=== PATIENT | male | born 1955 | race Caucasian/White ===

== ENCOUNTER → 2016-07-27 | Outpatient (CLI) | payer OTHER ==
[2016-07-27 07:45] LABS: CH 30.4; CHCM 33.9; HCT 44.2 % (39.0-53.0); HDW 2.68; HGB 15.1 gm/dL (13.0-17.5); MCH 30.8 pg (25.0-35.0); MCHC 34.2 g/dL (31.0-37.0); MCV 90.1 fL (80.0-100.0); Mean Platelet Volume 6.1; RBC 4.91 m/uL (4.30-5.90); RDW 12.6 % (11.5-15.5); WBC 5.7 k/uL (3.8-10.6)
[2016-07-27 15:53] LABS: Treponemal Ab Non-Reactive (Non-Reactive)
[2016-07-27 17:15] LABS: ANA w/Reflex to Titer NEGATIVE (NEGATIVE)
[2016-08-01 09:29] LABS: Mis test requested (Blood) Anti GM1
[2016-08-01 20:03] LABS: Mercury Whole Blood < 2 mcg/L (< 11)
[2016-08-08 16:22] LABS: Mis test requested (Blood) Anti - MAG Ab
[2016-08-08 17:03] LABS: Mis test requested (Blood) Anti - Hu
== END | disposition home or self-care (01) ==
LOC: LABWHC1 07:20
PROVIDERS: ATTEND Psychiatry & Neurology Sleep Medicine
DX: G45.9 Transient cerebral ischemic attack, unspecified (principal)
CPT/HCPCS: 36415; 82175; 82570; 82607; 82947; 83090; 83516; 83655; 83825; 84165; 84181; 84439; 84443; 85027; 86038; 86225; 86235; 86780

== ENCOUNTER 2017-10-11 09:02 | Emergency (ER) | payer OTHER ==
[2017-10-11 09:09] VITALS: RESP 20; TEMP 98.1
[2017-10-11] MEDS ORDERED: SODIUM CHLORIDE 0.9% 1,000 ML IV STA (09:40)
[2017-10-11] MEDS ORDERED: ACETAMINOPHEN TAB 500 MG TAB PO STA (09:40)
[2017-10-11 10:17] LABS: ALT 52 U/L (21-72); AST 38 U/L (17-59); Albumin 4.5 g/dL (3.5-5.0); Alkaline Phosphatase 71 U/L (38-126); Anion Gap 11 mmol/L; Blood Urea Nitrogen 12 mg/dL (9-20); Calcium 9.6 mg/dL (8.4-10.2); Carbon Dioxide 24 mmol/L (22-30); Chloride 105 mmol/L (98-107); Glucose 113 mg/dL (74-99); Potassium 4.4 mmol/L (3.5-5.1); Sodium 140 mmol/L (137-145); Total Bilirubin 0.9 mg/dL (0.2-1.3); Total Protein 7.6 g/dL (6.3-8.2)
[2017-10-11 10:29] LABS: Basophils % (A) 0 %; Eosinophils % (A) 1 %; HCT 44.7 % (39.0-53.0); HGB 15.6 gm/dL (13.0-17.5); Lymphocytes # (A) 0.9 k/uL (1.0-4.8); Lymphocytes % (A) 11 %; MCH 30.4 pg (25.0-35.0); MCHC 34.8 g/dL (31.0-37.0); MCV 87.2 fL (80.0-100.0); Mean Platelet Volume 6.6; Monocytes # (A) 0.3 k/uL (0-1.0); Monocytes % (A) 4 %; Neutrophils # (A) 6.6 k/uL (1.3-7.7); Neutrophils % (A) 83 %; Platelet Count 227 k/uL (150-450); RBC 5.13 m/uL (4.30-5.90); RDW 12.4 % (11.5-15.5)
--- NOTE | 2017-10-11 10:31 | ED ---
Headache HPI - General Chief Complaint: Headache Stated Complaint: HEAD INJURY Time Seen by Provider: 10/11/17 09:20 Mode of arrival: wheelchair Limitations: no limitations - History of Present Illness Initial Comments: 62 years old gentleman had a headache and not being able to see well since noon yesterday, he has a history of firm brain bleed in the past when she had a headache he took some aspirin for the headache denies any blood thinners except and the aspirin he denies any trauma no fall. He stated his vision is not very well but since yesterday he was not able to read well. His vision has improved now but not 100%. He is very active he runs about 2 miles every day, he has headache and poor vision no neck stiffness no chest pain or shortness of breath no abdominal pain no frequency urgency dysuria no symptoms of TIA or CVA though he has a history of CVA TIAs and has seen neurologist pretty religiously - Related Data Home Medications Medication Instructions Recorded Confirmed Aspirin 81 mg PO DAILY 10/11/17 10/11/17 Multivitamins, Thera [Multivitamin 1 tab PO DAILY 10/11/17 10/11/17 (formulary)] [place]-3 Fatty Acids/Fish Oil [Fish 1 cap PO DAILY 10/11/17 10/11/17 Oil 1,000 mg Softgel] Pravastatin Sodium [Pravachol] 10 mg PO HS 10/11/17 10/11/17 Allergies Allergy/AdvReac Type Severity Reaction Status Date / Time No Known Allergies Allergy Verified 10/11/17 09:26 Review of Systems ROS Statement: Those systems with pertinent positive or pertinent negative responses have been documented in the HPI. ROS Other: All systems not noted in ROS Statement are negative. Past Medical History Additional Past Medical History / Comment(s): brain bleed History of Any Multi-Drug Resistant Organisms: None Reported Past Psychological History: No Psychological Hx Reported Smoking Status: Never smoker Past Alcohol Use History: Occasional Past Drug Use History: None Reported General Exam - General Exam Comments Initial Comments: General: The patient is awake and alert, in no distress, and does not appear acutely ill. GCS is 15 Skin: Skin is warm and dry and no rashes or lesions are noted. Eye: Pupils are equal, round and reactive to light, extra-ocular movements are intact; there is normal conjunctiva bilaterally. Ears, nose, mouth and throat: There are moist mucous membranes and no oral lesions. Neck: The neck is supple, there is no tenderness Cardiovascular: There is a regular rate and rhythm. No murmur, rub or gallop is appreciated. Respiratory: To auscultation bilateral, no wheezing no rhonchi no distress respiratory castañeda noticed Gastrointestinal: Soft, non-distended, non-tender abdomen without masses or organomegaly noted. There is no rebound or guarding present. Bowel sounds are unremarkable. Back: There is no tenderness to palpation in the midline. There is no obvious deformity. Musculoskeletal: Normal ROM, no tenderness, There is no pedal edema. There is no calf tenderness or swelling. No cords were appreciated. Neurological: CN II-XII intact, Cranial nerves III through XII are intact. There are no obvious motor or sensory deficits. Coordination appears grossly intact. Speech is normal. Psychiatric: Cooperative, appropriate mood & affect, normal judgment. Limitations: no limitations Course Vital Signs 10/11/17 10/11/17 09:05 09:55 Temperature 98.1 F Pulse Rate 78 70 Respiratory 20 20 Rate Blood Pressure 135/75 142/76 O2 Sat by Pulse 100 99 Oximetry EKG is normal sinus rhythm ventricular rate 72 SD interval is 170 QRS durations 100 QT/QTc is 398/435 review of this EKG reveals some T-wave flattening in leads [address] elevation or ST depression noticed in the other leads Radiology gave me verbal report about the hematoma on head CT this patient I'm just waiting for the official report so I could discuss with the receiving hospital and patient also not sure where he wants to go home I did mention that we could send him to [facility] he said he needs to discuss with the family as soon as he answers many or advises me about to his shortness of hospital will go completely transfer process - Reevaluation(s) Reevaluation #1: CT of the brain revealed cerebral hematoma, it is 3.2 x 2 x 4.9 cm in size patient agreed to go to [facility] 10/11/17 10:59 Medical Decision Making - Lab Data Result diagrams: 10/11/17 09:51 10/11/17 09:51 Lab Results 10/11/17 10/11/17 Range/Units 09:51 09:51 WBC 8.0 (3.8-10.6) k/uL RBC 5.13 (4.30-5.90) m/uL Hgb 15.6 (13.0-17.5) gm/dL Hct 44.7 (39.0-53.0) % MCV 87.2 (80.0-100.0) fL MCH 30.4 (25.0-35.0) pg MCHC 34.8 (31.0-37.0) g/dL RDW 12.4 (11.5-15.5) % Plt Count 227 (150-450) k/uL Neutrophils % 83 % Lymphocytes % 11 % Monocytes % 4 % Eosinophils % 1 % Basophils % 0 % Neutrophils # 6.6 (1.3-7.7) k/uL Lymphocytes # 0.9 L (1.0-4.8) k/uL Monocytes # 0.3 (0-1.0) k/uL Eosinophils # 0.0 (0-0.7) k/uL Basophils # 0.0 (0-0.2) k/uL Sodium 140 (137-145) mmol/L Potassium 4.4 (3.5-5.1) mmol/L Chloride 105 (98-107) mmol/L Carbon Dioxide 24 (22-30) mmol/L Anion Gap 11 mmol/L BUN 12 (9-20) mg/dL Creatinine 0.76 (0.66-1.25) mg/dL Est GFR (CKD-EPI)AfAm >90 (>60 ml/min/1.73 sqM) Est GFR (CKD-EPI)NonAf >90 (>60 ml/min/1.73 sqM) Glucose 113 H (74-99) mg/dL Calcium 9.6 (8.4-10.2) mg/dL Total Bilirubin 0.9 (0.2-1.3) mg/dL AST 38 (17-59) U/L ALT 52 (21-72) U/L Alkaline Phosphatase 71 (38-126) U/L Total Protein 7.6 (6.3-8.2) g/dL Albumin 4.5 (3.5-5.0) g/dL Disposition Clinical Impression: Headache, Blurred vision, Focal hematoma of cerebrum Disposition: OTHER INSTITUTION NOT DEFINED Condition: Fair Referrals: Afshin Conrad III, MD [Primary Care Provider] - 1-2 days - Out of Hospital Transfer - Req. Specs Out of Hospital Transfer - Requested Specifics: Other Emergency Center (He should wants to go to [facility], [facility] was contacted at 11 AM)
--- NOTE | 2017-10-11 10:50 | CT ---
EXAMINATION TYPE: CT brain wo con DATE OF EXAM: 10/11/2017 COMPARISON: NONE HISTORY: Patient complains of headache and inability to read. CT DLP: 1112 mGycm Automated exposure control for dose reduction was used. Helical acquisition through the brain. FINDINGS: High dense focus present in the posterior temporal occipital location measures approximately 3.2 x 2 x 4.9 cm and shows some surrounding low density. There is extension from the inner table of the giancarlo rium to the level of the posterior horn of the left lateral ventricle. No evident hydrocephalus. No m idline shift. Minimal local mass effect suspected. Basal ganglia calcifications are suspected. Cerebr al vascular calcifications are present. Age-related atrophy is present. Calvarium is intact. Orbits s how symmetric appearance. Paranasal sinuses and mastoid air cells are well aerated. IMPRESSION: PARENCHYMAL CEREBRAL HEMATOMA DESCRIBED WITH SURROUNDING LOCAL EDEMA. CASE DISCUSSED WITH THE REFE RRING CLINICIAN AT THE TIME OF PERFORMANCE OF THE EXAM.
[2017-10-11 11:09] VITALS: BP 123/72; PULSE 72
== END 2017-10-11 11:41 | disposition other institution (70) ==
LOC: EC 09:02
DX: I61.9 Nontraumatic intracerebral hemorrhage, unspecified (principal); H53.8 Other visual disturbances; R40.2412 Glasgow coma scale score 13-15, at arrival to emergency department; Z79.82 Long term (current) use of aspirin; Z79.899 Other long term (current) drug therapy
CPT/HCPCS: 36415; 70450; 80053; 85025; 93005; 96360; 96361; 99285

== ENCOUNTER 2022-07-16 00:49 | Emergency (ER) | payer MEDICARE, OTHER ==
[2022-07-16] MEDS ORDERED: SODIUM CHLORIDE 0.9% 1,000 ML IV STA (00:50)
[2022-07-16] MEDS ORDERED: ALTEPLASE 81 MG in EMPTY BAG 1 BAG IV STA (00:53)
[2022-07-16] MEDS ORDERED: ALTEPLASE BOLUS 1 MG/1 ML SYRINGE IV STA (00:53)
[2022-07-16] MEDS ORDERED: Alteplase PER PHARMACY Stroke 1 EACH MISC MISCELLANE PRN (00:53)
[2022-07-16 01:06] LABS: Glucose,Whole Blood 120 mg/dL (70-110)
[2022-07-16 01:07] VITALS: TEMP 98
--- NOTE | 2022-07-16 01:08 | ED ---
Altered Mental Status HPI - General Chief Complaint: Altered Mental Status Stated Complaint: Possible Stroke Time Seen by Provider: 07/16/22 00:50 Source: patient, RN notes reviewed, old records reviewed Mode of arrival: EMS Limitations: altered mental status - History of Present Illness Initial Comments: This is a 67-year-old male to the ER for evaluation. Patient is brought in by EMS poor story secondary to clinical condition. Patient is significantly neurological changes which she awoke with 3 and half hours after going to bed around 9 PM last night which was last time seen well to the emergency department MD Complaint: altered mental status, confusion, decreased responsiveness, weakness -: unknown Severity: severe Consistency of Symptoms: getting worse Context: history of similar presentation Associated Symptoms: denies other symptoms Treatments Prior to Arrival: oxygen - Related Data Home Medications Medication Instructions Recorded Confirmed Aspirin 81 mg PO DAILY 10/11/17 10/11/17 Multivitamins, Thera [Multivitamin 1 tab PO DAILY 10/11/17 10/11/17 (formulary)] [place]-3 Fatty Acids/Fish Oil [Fish 1 cap PO DAILY 10/11/17 10/11/17 Oil 1,000 mg Softgel] Pravastatin Sodium [Pravachol] 10 mg PO HS 10/11/17 10/11/17 Allergies Allergy/AdvReac Type Severity Reaction Status Date / Time No Known Allergies Allergy Verified 10/11/17 09:26 Review of Systems ROS Statement: Those systems with pertinent positive or pertinent negative responses have been documented in the HPI. ROS Other: All systems not noted in ROS Statement are negative. Past Medical History Past Medical History: CVA/TIA Additional Past Medical History / Comment(s): brain bleed History of Any Multi-Drug Resistant Organisms: None Reported Past Surgical History: No Surgical Hx Reported Past Psychological History: No Psychological Hx Reported Past Alcohol Use History: Occasional Past Drug Use History: None Reported General Exam - General Exam Comments Initial Comments: NIH > 20 Patient is maintaining and protecting airway Limitations: altered mental status General appearance: alert, anxious, in distress Head exam: Present: atraumatic, normocephalic, normal inspection Eye exam: Present: normal appearance, PERRL, EOMI. Absent: scleral icterus, conjunctival injection, periorbital swelling ENT exam: Present: normal exam, mucous membranes moist Neck exam: Present: normal inspection. Absent: tenderness, meningismus, lymph adenopathy Respiratory exam: Present: normal lung sounds bilaterally. Absent: respiratory distress, wheezes, rales, rhonchi, stridor Cardiovascular Exam: Present: regular rate, normal rhythm, normal heart sounds. Absent: systolic murmur, diastolic murmur, rubs, gallop, clicks GI/Abdominal exam: Present: soft, normal bowel sounds. Absent: distended, tenderness, guarding, rebound, rigid Extremities exam: Present: normal inspection, full ROM, normal capillary refill. Absent: tenderness, pedal edema, joint swelling, calf tenderness Back exam: Present: normal inspection Neurological exam: Present: alert, altered, oriented X3, CN II-XII intact Psychiatric exam: Present: normal affect, normal mood Skin exam: Present: warm, dry, intact, normal color. Absent: rash Course Vital Signs 07/16/22 07/16/22 07/16/22 00:51 00:54 01:13 Temperature 98 F Pulse Rate 74 752 H 73 Respiratory 20 20 20 Rate Blood Pressure 132/89 131/89 132/89 O2 Sat by Pulse 96 96 73 L Oximetry - Reevaluation(s) Reevaluation #1: 07/16/22 01:04 Medical record is reviewed Reevaluation #2: 07/16/22 01:04 Code [facility] is p[facility]hospital - Consultations Consultation #1: Spoke with neurology Interventionalists will take transfer [facility] Consultation #2: Spoke with ER, [facility] accept transfer Medical Decision Making - Medical Decision Making 67 male DF for evaluation of altered mental status awoke with symptoms 3 hours after going to bed. Patient symptoms currently significant for right-sided weakness left-sided facial droop left-sided gaze. Patient does have left-sided intracranial hemorrhage and will transferred [facility] - Lab Data Result diagrams: 07/16/22 01:02 Lab Results 07/16/22 07/16/22 Range/Units 01:02 01:05 WBC 6.3 (3.8-10.6) k/uL RBC 4.07 L (4.30-5.90) m/uL Hgb 12.7 L (13.0-17.5) gm/dL Hct 35.9 L (39.0-53.0) % MCV 88.2 (80.0-100.0) fL MCH 31.3 (25.0-35.0) pg MCHC 35.5 (31.0-37.0) g/dL RDW 12.7 (11.5-15.5) % Plt Count 192 (150-450) k/uL MPV 7.3 Neutrophils % 55 % Lymphocytes % 32 % Monocytes % 6 % Eosinophils % 2 % Basophils % 1 % Neutrophils # 3.5 (1.3-7.7) k/uL Lymphocytes # 2.0 (1.0-4.8) k/uL Monocytes # 0.4 (0-1.0) k/uL Eosinophils # 0.1 (0-0.7) k/uL Basophils # 0.1 (0-0.2) k/uL POC Glucose (mg/dL) 120 H (70-110) mg/dL POC Glu Tv News Director ID Gonzales Calvert - EKG Data -: EKG Interpreted by Me (EKG is sinus 74 WA 200 QRS 117 QTC 423) - Radiology Data Radiology results: report reviewed (CT brain CTA is positive for left-sided intracranial hemorrhage), image reviewed Critical Care Time Critical Care Time: Yes Total Critical Care Time: 31 Disposition Clinical Impression: Altered mental status, Intracranial hemorrhage, Left-sided intracerebral hemorrhage Disposition: OTHER INSTITUTION NOT DEFINED Condition: Critical Is patient prescribed a controlled substance at d/c from ED?: No Referrals: Afshin Conrad III, MD [Primary Care Provider] - 1-2 days Time of Disposition: 01:30 - Out of Hospital Transfer - Req. Specs Out of Hospital Transfer - Requested Specifics: Other Emergency Center ([facility])
[2022-07-16] MEDS ORDERED: niCARdipine 20 MG in SODIUM CHLORIDE 0.9% 192 ML IV SCH (01:15)
--- NOTE | 2022-07-16 01:16 | CT ---
EXAMINATION TYPE: CT brain wo con for TPA DATE OF EXAM: 07/16/2022 COMPARISON: 10/11/2017 HISTORY: neuro deficit, r/o stroke. prior on pacs CT DLP: 1155.1 mGycm Automated exposure control for dose reduction was used. Images of the brain obtained with no contrast. There is large area of high attenuation in the left parietal and left posterior temporal lobe consist ent with acute hemorrhage. Abnormality measures approximately 7 x 5 cm. No significant midline shift. The calvarium is intact. There is some effacement of the occipital horn of the left lateral ventricl e. IMPRESSION: Large acute parenchymal hemorrhage left temporal lobe and parietal lobe which is same location as the acute hemorrhage on old CT scan of 10/11/2017. Hemorrhage is more extensive on this exam. Exam was discussed with the attending staff in the emergency room at 1:30 AM
--- NOTE | 2022-07-16 01:17 | XR ---
EXAMINATION TYPE: XR chest 1V portable DATE OF EXAM: 07/16/2022 COMPARISON: NONE HISTORY: Altered mental status TECHNIQUE: Single view FINDINGS: There is poor inspiration. No heart failure. Lungs are clear of consolidation. There are ch est leads. Bony thorax is intact. IMPRESSION: Poor inspiration. No acute lung disease.
[2022-07-16 01:20] LABS: Basophils # (A) 0.1 k/uL (0-0.2); Basophils % (A) 1 %; Eosinophils # (A) 0.1 k/uL (0-0.7); Eosinophils % (A) 2 %; HCT 35.9 % (39.0-53.0); HGB 12.7 gm/dL (13.0-17.5); Lymphocytes % (A) 32 %; MCH 31.3 pg (25.0-35.0); MCHC 35.5 g/dL (31.0-37.0); MCV 88.2 fL (80.0-100.0); Mean Platelet Volume 7.3; Monocytes # (A) 0.4 k/uL (0-1.0); Monocytes % (A) 6 %; Neutrophils # (A) 3.5 k/uL (1.3-7.7); Neutrophils % (A) 55 %; Platelet Count 192 k/uL (150-450); RBC 4.07 m/uL (4.30-5.90); RDW 12.7 % (11.5-15.5); WBC 6.3 k/uL (3.8-10.6)
[2022-07-16 01:31] VITALS: RESP 16
[2022-07-16 01:42] LABS: ALT 18 U/L (4-49); AST 26 U/L (17-59); African American GFR (CKD) >90 (>60 ml/min/1.73 sqM); Albumin 3.5 g/dL (3.5-5.0); Alkaline Phosphatase 61 U/L (38-126); Anion Gap 5 mmol/L; Blood Urea Nitrogen 19 mg/dL (9-20); Calcium 8.4 mg/dL (8.4-10.2); Carbon Dioxide 25 mmol/L (22-30); Chloride 106 mmol/L (98-107); Glucose 122 mg/dL (74-99); Non-African American GFR(CKD) >90 (>60 ml/min/1.73 sqM); Potassium 3.9 mmol/L (3.5-5.1); Sodium 136 mmol/L (137-145); Total Bilirubin 0.4 mg/dL (0.2-1.3)
[2022-07-16 01:43] LABS: Partial Thromboplastin Time 22.1 sec (22.0-30.0); Prothrombin Time 10.3 sec (9.0-12.0)
--- NOTE | 2022-07-16 01:44 | CT ---
EXAMINATION TYPE: CT angio head neck DATE OF EXAM: 07/16/2022 COMPARISON: None HISTORY: neuro deficit, r/o stroke. CT DLP: 593.5 mGycm Automated exposure control for dose reduction was used. CONTRAST: Performed with IV Contrast, patient injected with 65 mL of Isovue 370. Images obtained from the aortic arch to the vertex of the brain with the IV contrast. There are Three -D postprocessed images. There is normal branching pattern of the great vessels on the aortic arch. There is arterial flow in both subclavian arteries. There is arterial flow in the common internal and external carotid arteries bilaterally. There is art erial flow in both vertebral arteries. No evidence of carotid or vertebral artery aneurysm or dissect ion. No evidence of hemodynamic stenosis. Carotid artery bifurcations appear widely patent. There is arterial flow in the anterior middle and posterior cerebral arteries. There is large area of high attenuation in the left temporal parietal lobe related to acute hemorrhage. No contrast extrava sation. There is normal enhancement of the venous sinuses. No evidence of intracranial hemodynamic ar terial stenosis. No significant mass effect in the left temporal parietal lobe. IMPRESSION: No evidence of a significant angiographic abnormality of the head and neck. Large acute hemorrhage in the left temporoparietal lobe.
[2022-07-16 01:46] VITALS: BP 132/65; PULSE 75
[2022-07-16] MEDS ORDERED: SODIUM CHLORIDE 0.9% 50 ML MINI-BAG IV ONE (01:55)
== END 2022-07-16 01:45 | disposition other institution (70) ==
LOC: EC 00:49
DX: R41.82 Altered mental status, unspecified (principal); I62.9 Nontraumatic intracranial hemorrhage, unspecified; I61.9 Nontraumatic intracerebral hemorrhage, unspecified; Z86.73 Personal history of transient ischemic attack (TIA), and cerebral infarction without residual deficits; Z79.82 Long term (current) use of aspirin; Z79.899 Other long term (current) drug therapy
CPT/HCPCS: 99291 ×2; 96374 ×2; 36415; 93005; 80053; 84484; 85025; 85610; 85730; 71045; 70496; 70450; 70498; Q9967

== ENCOUNTER 2024-03-11 17:11 | Emergency (ER) | payer MEDICARE, OTHER ==
[2024-03-11] MEDS ORDERED: ACETAMINOPHEN TAB 325 MG TAB ONE (18:58)
[2024-03-11] MEDS ORDERED: DIPH,PERTUS(ACELL)TETVAC-LF 0.5 ML VIAL IM ONE (18:59)
[2024-03-11] MEDS ORDERED: LORazepam 2 MG/ML INJ ONE (20:14)
--- NOTE | 2024-04-01 08:41 | CT ---
Patient: Leon Calvillo Ordering Physician: Unknown, Unknown ID: [id number] Phone, Pager: Phone: N/A Pager: N/A : [phone] Age/Gender: 68Y, M Primary Location: N/A Procedure: CT brain wo con Study D ate: 03/11/2024 7:21:36 PM EXAMINATION TYPE: CT brain wo con CT DLP: 1157 mGycm, Automated exposure control for dose reduction was used. DATE OF EXAM: 03/11/2024 7:43 PM COMPARISON: 07/16/2022. CLINICAL INDICATION: Face and head injury. TECHNIQUE: Brain: Axial CT images of the brain were obtained with coronal and sagittal reformats created and rev iewed. Contrast used: None. Oral contrast used: None. FINDINGS: Brain: Extra-axial spaces: High density blood products seen within the sulci in the right frontal lobe . Ventricular system: Within normal limits Cerebral parenchyma: Remote injury to the left MCA territory. Including the left temporal lobe left f rontal lobe with encephalomalacia. High density contusions seen bilaterally in the frontal lobes.. T he lewis-white junction is well differentiated. Cerebellum: Unremarkable. Mass effect: No evidence of midline shift. Intracranial vasculature: Atherosclerotic calcifications of the intracranial vessels. Soft tissues: Right scalp edema Calvarium/osseous structures: No depressed skull fracture. Paranasal sinuses and mastoid air cells: Mild scattered paranasal sinus disease. Visualized orbits: Orbital contents are intact. IMPRESSION: 1. Right subarachnoid hemorrhage and bilateral frontal lobe intraparenchymal cortical contusions. 2. Right scalp edema/contusion with out evidence of fracture. 3. Sequela of prior left intraparenchymal hemorrhage. Findings communicated to Dr. Friedman on 03/11/2024 7:[address] Ronal Hartman.
== END 2024-03-11 21:10 ==
LOC: EC 17:11
CPT/HCPCS: 70450; 90715; 99291